=== PATIENT | female | born 1990 | race African-American/Black ===

== ENCOUNTER 2018-04-25 14:57 | Emergency (ER) | payer SELFPAY ==
[~2018-04-25] VITALS: Ht 177.8 cm; Wt 98.0 kg
[2018-04-25 15:08] VITALS: BP 155/94
--- NOTE | 2018-04-25 15:34 | Emergency Room Report ---
History of Present Illness General Chief Complaint: General Complaint Source: Patient Present Illness HPI 27-year-old female presents to the emergency department complaining of prolonged menstrual cycle with menses lasting almost one month. Patient reports approximately one and half weeks of heavy bleeding she states that her bleeding has minimized and is now spotting however it has not stopped. Patient states in the past she has had history of prolonged periods when she was younger and in high school. Patient denies taking control or medications to regulate her period. Patient does not have an COMPACTOR DRIVER at the moment. She denies she denies abdominal pain she denies vaginal discharge other than bleeding. She denies taking blood thinning medications or known history of blood dyscrasia. pt. has been told she is mildly anemic in the past. She states she is noticing fatigue. Denies CP, Palpitations, dizziness or syncope.Denies hx or migraines or CHRISTIAN's. Allergies: Coded Allergies: No Known Allergies (Unverified , 04/25/18) Patient History Past Medical History: see triage record Past Surgical History: none Pertinent Family History: none Last Menstrual Period: 03/11/18 Reviewed Nursing Documentation: PMH: Agreed; PSxH: Agreed Nursing Documentation-PMH Past Medical History: No Stated History Review of Systems All Other Systems: negative except mentioned in HPI Physical Exam Vital Signs Date Time Temp Pulse Resp B/P (MAP) Pulse Ox O2 Delivery O2 Flow Rate FiO2 04/25/18 15:08 98.2 99 18 155/94 99 Room Air Sp02 EP Interpretation: reviewed, normal General Appearance: no apparent distress, alert, GCS 15, non-toxic Head: normocephalic, atraumatic Eyes: bilateral eye normal inspection, bilateral eye PERRL ENT: hearing grossly normal, normal voice Neck: full range of motion Respiratory: lungs clear, normal breath sounds, speaking full sentences Cardiovascular #1: regular rate, rhythm, normal capillary refill, other - palms are pale Gastrointestinal: normal bowel sounds, non tender, soft Rectal: deferred Genitourinary: normal inspection, no CVA tenderness, deferred - pelvic exam deferred by pt. Musculoskeletal: back normal, gait/station normal, normal range of motion, non- tender Neurologic: alert, oriented x3, responsive, motor strength/tone normal, sensory intact, normal gait, speech normal, grossly normal Psychiatric: judgement/insight normal Skin: normal color - with the exception of pale palms, no rash, warm/dry, well hydrated, other Medical Decision Making PA Attestation Dr. Lucas is my supervising Physician whom patient management has been discussed with. Diagnostic Impression: Primary Impression: Metrorrhagia Additional Impression: Anemia, mild ER Course 27-year-old female presents to the emergency department complaining of prolonged menstrual cycle with menses lasting almost one month. Patient reports approximately one and half weeks of heavy bleeding she states that her bleeding has minimized and is now spotting however it has not stopped. Patient states in the past she has had history of prolonged periods when she was younger and in high school. Patient denies taking control or medications to regulate her period. Patient does not have an COMPACTOR DRIVER at the moment. She denies she denies abdominal pain she denies vaginal discharge other than bleeding. She denies taking blood thinning medications or known history of blood dyscrasia. pt. has been told she is mildly anemic in the past. She states she is noticing fatigue. Denies CP, Palpitations, dizziness or syncope.Denies hx or migraines or CHRISTIAN's. Ddx considered but are not limited to: Hormonal imbalance, , ectopic , DUB, Fibroid, ectopic , anemia just to name a few. Vital signs: are WNL, pt. is afebrile H&PE are most consistent with: Irregular menses ORDERS: -CBC: mild anemia -BMP: unremarkable -Urine hcg- Negative -- US not ordered as pt. reports bleeding has become spotting, and hx of prolonged menses when she was younger. Pt. is in stable condition and can have imaging performed by OBGYN as needed. ED INTERVENTIONS: None at this time. -d/w pt. need to establish herself with a PCP or OBGYN. DISCHARGE: At this time pt. is stable for d/c to home. Will provide printed patient care instructions, and any necessary prescriptions. Care plan and follow up instru Labs Test 04/25/18 15:28 White Blood Count 7.7 K/UL (4.8-10.8) Red Blood Count 4.51 M/UL (4.20-5.40) Hemoglobin 10.9 G/DL (12.0-16.0) Hematocrit 34.0 % (37.0-47.0) Mean Corpuscular Volume 75 FL (80-99) Mean Corpuscular Hemoglobin 24.1 PG (27.0-31.0) Mean Corpuscular Hemoglobin Concent 32.0 G/DL (32.0-36.0) Red Cell Distribution Width 17.4 % (11.6-14.8) Platelet Count 292 K/UL (150-450) Mean Platelet Volume 7.5 FL (6.5-10.1) Neutrophils (%) (Auto) 53.4 % (45.0-75.0) Lymphocytes (%) (Auto) 37.3 % (20.0-45.0) Monocytes (%) (Auto) 5.7 % (1.0-10.0) Eosinophils (%) (Auto) 1.6 % (0.0-3.0) Basophils (%) (Auto) 2.0 % (0.0-2.0) Sodium Level 136 MMOL/L (136-145) Potassium Level 4.2 MMOL/L (3.5-5.1) Chloride Level 102 MMOL/L (98-107) Carbon Dioxide Level 25 MMOL/L (21-32) Anion Gap 9 mmol/L (5-15) Blood Urea Nitrogen 9 mg/dL (7-18) Creatinine 0.6 MG/DL (0.55-1.30) Estimat Glomerular Filtration Rate > 60 mL/min (>60) Glucose Level 217 MG/DL (74-106) Calcium Level 9.0 MG/DL (8.5-10.1) Last Vital Signs Date Time Temp Pulse Resp B/P (MAP) Pulse Ox O2 Delivery O2 Flow Rate FiO2 04/25/18 15:08 99 18 Room Air 04/25/18 15:08 98.2 155/94 99 Disposition: HOME, SELF-CARE Condition: Stable Scripts Norethindrone-E.estradiol-Iron (Blisovi Fe 1-20 Tablet) 1 Each Tablet 1 EACH PO DAILY, #1 PACK 1 Refill Prov: Johnna Mcgowan 04/25/18 Iron,Carbonyl/Ascorbic Acid (IRON 100-VITAMIN C TABLET) 1 Each Tablet 1 EACH PO DAILY, #30 TAB Prov: Johnna Mcgowan 04/25/18 Patient Instructions: Iron Deficiency Anemia, Adult, [id number], Metrorrhagia , Gheu-sl-Goax Additional Instructions: Take medications as directed. Follow up with a OBGYN within 3-5 days, even if your symptoms have resolved. -Please refer to provided list of primary care clinics, if you do not already have a PCP. Return sooner to ED if new symptoms occur, or current symptoms become worse. - Please note that this Emergency Department Report was dictated using [employer] service representative technology software, occasionally this can lead to erroneous entry secondary to interpretation by the dictation equipment. Johnna Mcgowan Apr 25, 2018 15:34
[2018-04-25 15:49] LABS: EOSINOPHILS % (AUTO) 1.6 % (0.0-3.0); HEMOGLOBIN 10.9 G/DL (12.0-16.0); LYMPHOCYTES % (AUTO) 37.3 % (20.0-45.0); MEAN CORPUSCULAR VOLUME 75 FL (80-99); MONOCYTES % (AUTO) 5.7 % (1.0-10.0); NEUTROPHILS % (AUTO) 53.4 % (45.0-75.0); PLATELET COUNT 292 K/UL (150-450); RED BLOOD COUNT 4.51 M/UL (4.20-5.40); RED CELL DISTRIBUTION WIDTH 17.4 % (11.6-14.8); WHITE BLOOD COUNT 7.7 K/UL (4.8-10.8)
[2018-04-25 15:58] LABS: ANION GAP 9 mmol/L (5-15); BLOOD UREA NITROGEN 9 mg/dL (7-18); CARBON DIOXIDE 25 MMOL/L (21-32); CHLORIDE 102 MMOL/L (98-107); CREATININE 0.6 MG/DL (0.55-1.30); POTASSIUM 4.2 MMOL/L (3.5-5.1); SODIUM 136 MMOL/L (136-145)
[2018-04-25] MEDS ORDERED: BLISOVI FE 1-21 EACH PO (16:09)
[2018-04-25] MEDS ORDERED: IRON 100-VITAM1 EACH PO (16:09)
[2018-04-25 17:31] VITALS: BP 155/94
== END 2018-04-25 17:32 | disposition home or self-care (01) ==
LOC: EMR 15:35
DX: N92.1 Excessive and frequent menstruation with irregular cycle (principal); D64.9 Anemia, unspecified
CPT/HCPCS: 36415; 80048; 81025; 85025; 99284